=== PATIENT | male | born 1960 | race Caucasian/White ===

== ENCOUNTER → 2018-01-11 | Outpatient (CLI) | payer OTHER ==
[~2018-01-11] MED LIST: LACT10SY PO; NEFA50; POLY17UD PO; SENNP PO; [UNRECOGNIZED DRUG - CODE]; [UNRECOGNIZED DRUG - OTHER]
== END | disposition home or self-care (01) ==
LOC: PLD 08:28 → LAB SHORT 08:28
DX: D48.5 Neoplasm of uncertain behavior of skin (principal)
CPT/HCPCS: 88304

== ENCOUNTER 2018-09-28 11:51 | Day surgery (SDC) | payer OTHER ==
[~2018-09-28] VITALS: Ht 180.3 cm; Wt 142.1 kg
[~2018-09-28 11:51] MED LIST changes: +ACETAMINOPHEN500 MG PO; +ADAL40PEN; +ALBU90OI61 INH; +KRILL OIL 1,001 EACH PO; +LANS15EC PO; +Multiple Vitam1 EAC1 PO; +TAMS.4ER PO
--- NOTE | 2018-09-28 13:35 | NUR ---
09/28/18 1335 Juliana Prieto INJECTED FOR IRRIGATION PER DR NASH
== END 2018-09-28 14:21 | disposition home or self-care (01) ==
LOC: ORSCSDS 11:51
PROVIDERS: Internal Medicine Gastroenterology
PROC: 0DBM8ZX Excision of Descending Colon, Via Natural or Artificial Opening Endoscopic, Diagnostic (ICD-10-PCS; principal; 2018-09-28 13:00)
DX: Z12.11 Encounter for screening for malignant neoplasm of colon (principal); Z86.010 Personal history of colon polyps; D12.4 Benign neoplasm of descending colon; K57.30 Diverticulosis of large intestine without perforation or abscess without bleeding; E66.01 Morbid (severe) obesity due to excess calories; Z68.41 Body mass index [BMI] 40.0-44.9, adult; G47.33 Obstructive sleep apnea (adult) (pediatric)
CPT/HCPCS: 88305; J1980; J7120

== ENCOUNTER → 2019-10-27 | Outpatient (CLI) | payer OTHER | END | disposition home or self-care (01) | LOC: LAB 16:10 → LAB SHORT 16:10 | DX: L02.91 Cutaneous abscess, unspecified (principal) | CPT/HCPCS: 87070; 87075; 87077; 87147; 87186; 87205 ==

== ENCOUNTER → 2020-05-27 | Outpatient (CLI) | payer OTHER | END | disposition home or self-care (01) | LOC: LAB SHORT 15:12 → PLD 15:12 | DX: L08.0 Pyoderma (principal) | CPT/HCPCS: 87070; 87077; 87147; 87186; 87205 ==